=== PATIENT | female | born 1965 | race Caucasian/White ===

== ENCOUNTER 2016-07-05 12:36 | Inpatient (IN) ==
[2016-07-05] MEDS ORDERED: traZODone 50 MG TABLET PO PRN (18:10)
[2016-07-05] MEDS ORDERED: hydrOXYzine pamoate 25 MG CAPSULE PO PRN (18:10)
[2016-07-05] MEDS ORDERED: Haloperidol Lactate 5 MG/ML VIAL IM PRN (18:10)
[2016-07-05] MEDS ORDERED: MOM Conc 10 ML UD.LIQ PO PRN (18:10)
[2016-07-05] MEDS ORDERED: Mag Hydrox/Al Hydrox/Simeth 30 ML UDC PO PRN (18:10)
[2016-07-05 19:09] LABS: BUN/Creatinine Ratio 8 (6-26); Blood Urea Nitrogen 9 mg/dL (7-20); Calcium 9.8 mg/dL (8.6-10.8); Carbon Dioxide 33 mEq/L (19-29); Chloride 100 mEq/L (98-109); Glucose 160 mg/dL (70-99); Osmolality,Calculated 292 (280-300); Potassium 3.6 mEq/L (3.5-4.5); Sodium 140 mEq/L (136-145); eGFR For African Americans > 60 (> 60); eGFR For Non-African Americans 55 (> 60)
[2016-07-05] MEDS: traZODone 50 MG TABLET PO SCH (21:36)
[2016-07-05] MEDS: Ibuprofen 800 MG TABLET PO SCH (21:36)
[2016-07-05] MEDS: lamoTRIgine 25 MG TABLET PO SCH (21:36)
[2016-07-05] MEDS: Gabapentin 400 MG CAPSULE PO SCH (21:37)
[2016-07-05] MEDS: hydrOXYzine pamoate 25 MG CAPSULE PO SCH (21:37)
[2016-07-05] MEDS: Furosemide 40 MG TABLET PO SCH (21:40)
[2016-07-05] MEDS: *HR* Metformin 500 MG TABLET PO SCH (21:41)
[2016-07-05 21:51] LABS: Amphetamine Screen,Urine Negative ng/mL (Cutoff=1000); Barbiturate Screen,Urine Negative ng/mL (Cutoff=200); Benzodiazepines Screen,Urine Negative ng/mL (Cutoff=200); Cannabinoid Screen,Urine Negative ng/mL (Cutoff = 50); Cocaine Screen,Urine Negative ng/mL (Cutoff= 300); Opiate Screen,Urine Positive ng/mL (Cutoff=300); Phencyclidine Screen,Urine Negative ng/mL (Cutoff=25)
[2016-07-06] MEDS: *HR* OxyCODONE/APAP 7.5/325 TABLET PO PRN ×3 (05:24→22:32)
[2016-07-06] MEDS: Gabapentin 400 MG CAPSULE PO SCH ×3 (08:24→21:27)
[2016-07-06] MEDS: Furosemide 40 MG TABLET PO SCH ×2 (08:25→14:15)
[2016-07-06] MEDS: Ibuprofen 800 MG TABLET PO SCH ×3 (08:26→21:26)
[2016-07-06] MEDS: ARIPiprazole 5 MG TABLET PO SCH (08:27)
[2016-07-06] MEDS: Loratadine 10 MG TABLET PO SCH (08:28)
[2016-07-06] MEDS: *HR* Metformin 500 MG TABLET PO SCH ×2 (08:28→16:45)
[2016-07-06] MEDS: *HR* Glimepiride 4 MG TABLET PO SCH (08:29)
[2016-07-06] MEDS: *HR* Digoxin 0.25 MG TABLET PO SCH (08:30)
[2016-07-06] MEDS: (Linaclotide [Linzess] 290 MCG) PO SCH (09:55)
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
[2016-07-06] MEDS: lamoTRIgine 25 MG TABLET PO SCH (21:26)
[2016-07-06] MEDS: hydrOXYzine pamoate 25 MG CAPSULE PO SCH (21:26)
[2016-07-06] MEDS: traZODone 50 MG TABLET PO SCH (21:27)
[2016-07-06] MEDS: Mirtazapine 15 MG TABLET PO SCH (22:10)
[2016-07-07] MEDS: *HR* OxyCODONE/APAP 7.5/325 TABLET PO PRN ×2 (07:50→20:15)
[2016-07-07] MEDS: *HR* Metformin 500 MG TABLET PO SCH ×2 (07:50→16:43)
[2016-07-07] MEDS: Gabapentin 400 MG CAPSULE PO SCH ×3 (09:25→21:04)
[2016-07-07] MEDS: ARIPiprazole 5 MG TABLET PO SCH (09:26)
[2016-07-07] MEDS: Loratadine 10 MG TABLET PO SCH (09:27)
[2016-07-07] MEDS: Furosemide 40 MG TABLET PO SCH (09:27)
[2016-07-07] MEDS: Ibuprofen 800 MG TABLET PO SCH ×3 (09:27→21:05)
[2016-07-07] MEDS: *HR* Glimepiride 4 MG TABLET PO SCH (09:28)
[2016-07-07] MEDS: *HR* Digoxin 0.25 MG TABLET PO SCH (09:28)
[2016-07-07] MEDS: (Linaclotide [Linzess] 290 MCG) PO SCH ×2 (10:03→10:06)
--- NOTE | 2016-07-07 14:28 | Psychiatry Progress Note ---
Date of Encounter: 07/07/16 Time of Encounter: 14:25 Subjective Interval history: Pt reports taht she is feeling better and would like to go home today. She is quite concerned that she hads 3 medical appointments next week that she needs to keep inorder to contain her chroic pain. She denies feeling suicidal or feeling hopeless. No s/e Lamictal. Review of Systems Psychiatric: Reports: depression, anxiety, abnormal sleep pattern, hopelessness , irritability Objective: Exam Level of alertness: Alert Patient appearance: Well Groomed, Obese Behavior: calm, cooperative Psychomotor activity: Normal Eye contact: Maintains Eye Contact Mood description: Depressed Affect description: congruent with mood Speech pattern: Normal rate, Normal rhythm, Normal tone Speech volume: Normal Thought process: Intact, Logical, Linear Thought content: Yes Intact Perceptual disturbances: No Auditory hallucinations, No Visual hallucinations Judgment: Good Results - Vital Signs Vital Signs: Temp Pulse Resp BP 97.7 F 70 16 122/77 07/07/16 07:58 07/07/16 07:58 07/07/16 07:58 07/07/16 07:58 - Labs Labs: Laboratory Results - last 24 hr 07/06/16 07/07/16 16:21 06:44 POC Glucose 94 H 163 H Assessment and Plan (1) MDD (major depressive disorder), recurrent, severe, with psychosis Current visit: No Status: Acute Risks, benefits, side effects, alternatives discussed w/pt: Yes (Lamictal initiated.) Patient agreeable to treatment: Yes Consult Discharge Plan - Plan Referrals: [facility] [Outside] - 08/23/16 11:40 am (The above appointment is with Dr. Serrano.) Ceasar Rojo, PhD [Outside] - 07/09/16 4:00 pm (The above appointment is with Ceasar Rojo, PhD, at his office located at [address] [place] [address] in [place] [address].)
[2016-07-07] MEDS ORDERED: Mirtazapine 15 MG TABLET PO SCH (21:00)
[2016-07-07] MEDS: traZODone 50 MG TABLET PO SCH (21:03)
[2016-07-07] MEDS: Mirtazapine 15 MG TABLET PO SCH (21:03)
[2016-07-07] MEDS: lamoTRIgine 25 MG TABLET PO SCH (21:03)
[2016-07-07] MEDS: hydrOXYzine pamoate 25 MG CAPSULE PO SCH (21:04)
[2016-07-08] MEDS: *HR* OxyCODONE/APAP 7.5/325 TABLET PO PRN (03:10)
[2016-07-08] MEDS: ARIPiprazole 5 MG TABLET PO SCH (08:33)
[2016-07-08] MEDS: Gabapentin 400 MG CAPSULE PO SCH ×2 (08:34→14:37)
[2016-07-08] MEDS: Loratadine 10 MG TABLET PO SCH (08:34)
[2016-07-08] MEDS: Furosemide 40 MG TABLET PO SCH (08:34)
[2016-07-08] MEDS: *HR* Digoxin 0.25 MG TABLET PO SCH (08:34)
[2016-07-08] MEDS: Ibuprofen 800 MG TABLET PO SCH ×2 (08:35→14:37)
[2016-07-08] MEDS: *HR* Metformin 500 MG TABLET PO SCH (08:36)
[2016-07-08] MEDS: *HR* Glimepiride 4 MG TABLET PO SCH (08:37)
[2016-07-08] MEDS: (Linaclotide [Linzess] 290 MCG) PO SCH (08:37)
[2016-07-08 08:45] VITALS: BP 139/73
--- NOTE | 2016-07-08 08:59 | Electrocardiograph Report ---
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
--- NOTE | 2016-07-08 13:42 | Discharge Summary ---
Date of Encounter: 07/08/16 Time of Encounter: 13:42 Diagnosis - Discharge Diagnosis (1) MDD (major depressive disorder), recurrent, severe, with psychosis Status: Acute Medications - Discharge Medications Prescriptions: Lamotrigine [Lamictal] 25 mg PO HS #30 tablet Mirtazapine [Remeron] 15 mg PO HS #30 tablet Duloxetine HCl [Cymbalta] 60 mg PO BID 07/17/15 [History] HydrOXYzine Pamoate 25 mg PO HS 07/17/15 [History] Ibuprofen [Motrin] 800 mg PO TID 07/17/15 [History] Linaclotide [Linzess] 290 mcg PO DAILY 07/17/15 [History] Loratadine [Claritin] 10 mg PO DAILY 07/17/15 [History] Oxycodone HCl/Acetaminophen [Percocet 7.5-325 mg Tablet] 1 - 2 tab PO TID PRN [History] TraZODone 150 - 300 mg PO HS 07/17/15 [History] Aripiprazole [Abilify] 5 mg PO DAILY #30 tablet 07/19/15 [Rx] Digoxin [Lanoxin] 0.25 mg PO DAILY 07/05/16 [History] Esomeprazole Magnesium [Nexium] 40 mg PO DAILY 07/05/16 [History] Furosemide [Lasix] 120 mg PO TID 07/05/16 [History] Gabapentin [Neurontin] 800 mg PO TID 07/05/16 [History] Glimepiride [Amaryl] 4 mg PO DAILY 07/05/16 [History] Lisinopril [Zestril] 5 mg PO DAILY 07/05/16 [History] Metformin [Glucophage] 1,000 mg PO BID 07/05/16 [History] Potassium Chloride [K-Tab ER] 40 meq PO BID 07/05/16 [History] Rosuvastatin [Crestor] 20 mg PO HS 07/05/16 [History] Lamotrigine [Lamictal] 25 mg PO HS #30 tablet 07/08/16 [Rx] Mirtazapine [Remeron] 15 mg PO HS #30 tablet 07/08/16 [Rx] Allergies lorazepam [From Ativan] Allergy (Verified 07/17/15 22:35) Palpitations ropinirole [From Requip] Allergy (Verified 07/17/15 22:35) Palpitations Results Procedures and tests throughout hospitalization: Completed Lab Orders Category Date Time Status Chem 7 [Basic Metabolic Panel] Routine Lab 07/05/16 18:50 Completed Drug Screen, Urine [UCHEM] Routine Lab 07/05/16 21:30 Completed Provider Date of admission: 07/05/16 12:36 Primary care physician: PCP NO Discharging clinician: Keyshawn Garcia Assessment and Plan - Patient/Caregiver Discharge Instructions Activity: resume usual activities as tolerated Diet: regular diet - Follow up Plan Follow up with: [facility] [Outside] - 08/23/16 11:40 am (The above appointment is with Dr. Serrano.) Ceasar Rojo, PhD [Outside] - 07/09/16 4:00 pm (The above appointment is with Ceasar Rojo, PhD, at his office located at [address] [place] [address] in [place] [address].) Functional capacity at discharge: independent ambulation Overall status at discharge: Stable Disposition: Home, Self-Care Hospital Course Hospital course: Ms. Gordon is a 50 year old female admitted for evaluation and treatment of panic attacks and suicidal ideation. For details of the admission please see H& P On the units patient medication were reviewed and Lamictal and mirtazapine were added, patient responded well to medication changes reported improved sleep and less anxiety. Patient was compliant with medication and participated in activities. Prior to discharge patient was medically stable, denies suicidal ideation, tolerating medication. Her discharge plans were completed by social group worker. - Time Spent with Patient Total time spent providing and/or coordinating discharge services: Less than 30 minutes Quality - Multiple Antipsychotics Patient discharged on 2 or more antipsychotic medications: No Procedures - Procedures Procedures: Medication Management, Crisis Stabilization, Supportive Therapy, Group Therapy, Psychoeducational Therapy Mental Status Exam - Mental Status Exam Patient orientation: Yes Person, Yes Time, Yes Place Level of alertness: Alert Patient appearance: Well Groomed, Obese Behavior: calm, cooperative Psychomotor activity: Normal Eye contact: Maintains Eye Contact Mood description: Depressed Affect description: congruent with mood Speech pattern: Normal rate, Normal rhythm, Normal tone Speech Volume: Normal Thought process: Intact, Logical, Linear Thought Content: Yes Intact Perceptual Disturbances: No Auditory hallucinations, No Visual hallucinations Judgment: Good Insight: Partial
== END 2016-07-08 15:10 | disposition home or self-care (01) | DRG 885 ==
LOC: 1ANU 12:36 → SUATTDRO 12:36
PROVIDERS: ADMIT Psychiatry & Neurology Psychiatry; ATTEND Psychiatry & Neurology Psychiatry

== ENCOUNTER 2021-09-07 11:53 | Inpatient (IN) ==
[2021-09-07] MEDS ORDERED: Iopamidol - 370 500 ML MLS IVP ONE (12:25)
[2021-09-07] MEDS ORDERED: Morphine Sulfate 2 MG/ML SYRINGE IVP ONE (12:28)
[2021-09-07] MEDS ORDERED: Ondansetron 4 MG/2 ML VIAL IVP PRN ×3 (12:28→17:59)
[2021-09-07 13:01] LABS: White Blood Count 6.1 K/mcL (4.3-11.1)
[2021-09-07 13:02] LABS: Basophils % 0.5 %; Eosinophils # 0.3 K/mcL (0.0-0.6); Eosinophils % 4.1 %; Hematocrit 38.8 % (35.3-44.9); Hemoglobin 13.5 g/dL (11.5-15.4); Immature Granulocytes % 0.5 % (0-4); Lymphocytes # 1.5 K/mcL (0.6-4.6); Lymphocytes % 25.5 %; Mean Corpuscular HGB Conc 34.8 g/dL (31.6-35.5); Mean Corpuscular Hemoglobin 32.4 pg (28.0-33.3); Mean Platelet Volume 9.9 fL (9.4-12.4); Monocytes # 0.3 K/mcL (0.0-1.3); Monocytes % 5.6 %; Neutrophils # 3.9 K/mcL (1.6-8.9); Platelet Count 242 K/mcL (140-400); Red Blood Count 4.17 M/mcL (3.82-4.97); Red Cell Distribution Width 13.5 % (11.5-14.5); Segmented Neutrophils % 63.8 %
[2021-09-07 13:07] LABS: INR 0.9; Prothrombin Time 10.5 Seconds (9.4-12.1)
[2021-09-07 13:10] LABS: Activated Partial Thrombo Time 33.9 Seconds (26.0-36.0)
[2021-09-07 14:10] LABS: Alanine Aminotransferase > 5000 Units/L (7-52); Albumin/Globulin Ratio 1.2 (1.1-2.2); Alkaline Phosphatase 97 Units/L (34-104); Aspartate Amino Transferase > 3000 Units/L (13-39); BUN/Creatinine Ratio 17 (6-26); Bilirubin,Direct 0.2 mg/dL (0.0-0.2); Bilirubin,Total 0.2 mg/dL (0.3-1.0); Blood Urea Nitrogen 11 mg/dL (6-20); Calcium 9.7 mg/dL (8.6-10.3); Carbon Dioxide 22 mEq/L (23-29); Chloride 99 mEq/L (98-107); Globulin 3.3 g/dL (2.4-3.5); Glucose 158 mg/dL (70-105); Lipase 72 Units/L (11-82); Osmolality,Calculated 279 (280-300); Potassium 4.8 mEq/L (3.5-5.1); Sodium 133 mEq/L (136-145); Total Protein 7.3 g/dL (6.4-8.9); eGFR For African Americans > 60 (> 60); eGFR For Non-African Americans > 60 (> 60)
[2021-09-07 14:59] LABS: Bacteria,Urine Few per hpf (None-Few); Bilirubin,Urine Negative (Negative); Blood,Urine Negative (Negative); Clarity,Urine Clear (Clear); Color,Urine Light-Yellow (Yellow); Glucose,Urine (UA) Normal (Normal); Ketones,Urine Negative (Negative); Leukocyte Esterase,Urine Negative (Negative); Nitrite,Urine Negative (Negative); Protein,Urine 50 mg/dL (Neg-Trace); RBC,Urine 0-3 per hpf (0-3); Specific Gravity,Urine 1.014 (1.010-1.025); Squamous Epithelial Cell,Urine Few per hpf (None-Few); Urobilinogen,Urine Normal (Normal); WBC,Urine 0-3 per hpf (0-3)
[2021-09-07] MEDS ORDERED: *HR* FentaNYL (PF) 100 MCG/2 ML VIAL IVP ONE (15:21)
[2021-09-07 16:02] LABS: Acetaminophen < 10 mcg/mL (10-20)
[2021-09-07 16:04] LABS: Hepatitis B Surface Antigen Nonreactive (Nonreactive)
[2021-09-07 16:35] LABS: Hepatitis A Antibody IgM Nonreactive (Nonreactive); Hepatitis B Core IgM Nonreactive (Nonreactive)
[2021-09-07 16:36] LABS: Hepatitis C Virus Antibody Nonreactive (Nonreactive)
[2021-09-07] MEDS ORDERED: Naloxone 0.4 MG/ML INJ IVP PRN (17:59)
[2021-09-07] MEDS ORDERED: D5% in Water 1,000 ML IVC PRN (18:33)
[2021-09-07] MEDS ORDERED: *HR* Dextrose 50 % in Water (Syg) 50 ML SYRINGE IVP PRN (18:33)
[2021-09-07] MEDS ORDERED: Dextrose Gel 15 GM/37.5 ML TUBE PO PRN ×2 (18:33)
[2021-09-07] MEDS: carBAMazepine 200 MG TABLET PO SCH (20:32)
[2021-09-07] MEDS: Bumetanide 1 MG TABLET PO SCH (20:33)
[2021-09-07] MEDS: methocarbamoL 750 MG TABLET PO SCH (20:33)
[2021-09-07] MEDS: Pregabalin 75 MG CAPSULE PO SCH (20:33)
[2021-09-07] MEDS: Celecoxib 200 MG CAPSULE PO SCH (20:33)
[2021-09-07] MEDS: rOPINIRole 3 MG, rOPINIRole 2 MG PO SCH (20:43)
[2021-09-07] MEDS ORDERED: *HR* Insulin Regular U-500 500 UNIT/ML SUBQ SCH (21:00)
[2021-09-07] MEDS ORDERED: diazePAM 10 MG TABLET PO SCH (21:00)
[2021-09-07] MEDS ORDERED: NON-FORMULARY MEDICATION 1 EACH EACH (Ropinirole Hcl 5 MG Tablet) PO SCH (21:00)
[2021-09-07 21:14] LABS: Magnesium 1.7 mg/dL (1.6-2.6); Troponin I < 0.03 ng/mL (< 0.04)
[2021-09-07 22:18] LABS: Estimated Average Glucose 246 mg/dl; Hemoglobin A1C 10.2 %
[2021-09-07 23:33] LABS: Amphetamine Screen,Urine Negative ng/mL (Cutoff=1000); Barbiturate Screen,Urine Negative ng/mL (Cutoff=200); Benzodiazepines Screen,Urine Positive ng/mL (Cutoff=200); Cannabinoid Screen,Urine Negative ng/mL (Cutoff = 50); Cocaine Screen,Urine Negative ng/mL (Cutoff= 300); Opiate Screen,Urine Negative ng/mL (Cutoff=300); Phencyclidine Screen,Urine Negative ng/mL (Cutoff=25)
[2021-09-08] MEDS: Insulin LISPRO 300 UNITS/3 ML VIAL SUBQ SCH ×4 (00:09→17:00)
[2021-09-08] MEDS ORDERED: Insulin DETEMIR 100 UNIT/ML X5UNITS SUBQ ONE (01:45)
[2021-09-08 06:20] LABS: Basophils % 0.6 %; Eosinophils # 0.2 K/mcL (0.0-0.6); Eosinophils % 3.7 %; Hemoglobin 13.1 g/dL (11.5-15.4); Immature Granulocytes % 0.6 % (0-4); Lymphocytes # 1.9 K/mcL (0.6-4.6); Mean Corpuscular HGB Conc 33.6 g/dL (31.6-35.5); Mean Corpuscular Hemoglobin 31.4 pg (28.0-33.3); Mean Corpuscular Volume 93.5 fL (83.0-100.0); Mean Platelet Volume 10.1 fL (9.4-12.4); Monocytes # 0.3 K/mcL (0.0-1.3); Monocytes % 7.1 %; Neutrophils # 2.2 K/mcL (1.6-8.9); Platelet Count 209 K/mcL (140-400); Red Blood Count 4.17 M/mcL (3.82-4.97); Red Cell Distribution Width 13.4 % (11.5-14.5); White Blood Count 4.6 K/mcL (4.3-11.1)
[2021-09-08 06:26] LABS: INR 1.1
[2021-09-08 06:54] LABS: Alanine Aminotransferase 27 Units/L (7-52); Albumin 3.9 g/dL (3.5-5.7); Albumin/Globulin Ratio 1.3 (1.1-2.2); Alkaline Phosphatase 91 Units/L (34-104); Aspartate Amino Transferase 29 Units/L (13-39); BUN/Creatinine Ratio 18 (6-26); Bilirubin,Total 0.3 mg/dL (0.3-1.0); Blood Urea Nitrogen 12 mg/dL (6-20); Calcium 9.4 mg/dL (8.6-10.3); Carbon Dioxide 27 mEq/L (23-29); Chloride 96 mEq/L (98-107); Chol/HDL Ratio 15.1 (0-4.9); Cholesterol 559 mg/dL (< 200); Glucose 218 mg/dL (70-105); HDL Cholesterol 37 mg/dL (40-59); Osmolality,Calculated 282 (280-300); Potassium 3.7 mEq/L (3.5-5.1); Sodium 133 mEq/L (136-145); Total Protein 6.9 g/dL (6.4-8.9); Triglycerides 2670 mg/dL (< 150); eGFR For African Americans > 60 (> 60); eGFR For Non-African Americans > 60 (> 60)
[2021-09-08] MEDS: lisinopriL 5 MG TABLET PO SCH (08:26)
[2021-09-08] MEDS: Pantoprazole 40 MG VIAL IVP SCH (08:26)
[2021-09-08] MEDS: *HR* Digoxin 0.125 MG TABLET PO SCH (08:26)
[2021-09-08] MEDS: methocarbamoL 750 MG TABLET PO SCH ×3 (08:26→22:14)
[2021-09-08] MEDS: carBAMazepine 200 MG TABLET PO SCH ×3 (08:26→22:11)
[2021-09-08] MEDS: Pregabalin 75 MG CAPSULE PO SCH ×3 (08:26→22:11)
[2021-09-08] MEDS: Bumetanide 1 MG TABLET PO SCH ×2 (08:26→16:58)
[2021-09-08] MEDS: diazePAM 5 MG TABLET PO SCH ×2 (08:26→22:12)
[2021-09-08] MEDS: Celecoxib 200 MG CAPSULE PO SCH ×2 (08:26→22:12)
[2021-09-08] MEDS: Aspirin Enteric Coated 81 MG Tablet PO SCH (08:26)
[2021-09-08] MEDS: Fenofibrate 54 MG TABLET PO SCH (10:22)
[2021-09-08] MEDS: *HR* Insulin Regular U-500 500 UNIT/ML SUBQ SCH (10:22)
[2021-09-08] MEDS: rOPINIRole 3 MG, rOPINIRole 2 MG PO SCH ×2 (10:22→23:14)
[2021-09-08 10:29] LABS: Albumin 3.9 g/dL (3.5-5.7); Albumin/Globulin Ratio 1.3 (1.1-2.2); Bilirubin,Indirect 0.4 mg/dL (0.0-1.0); Bilirubin,Total 0.4 mg/dL (0.3-1.0); Total Protein 6.9 g/dL (6.4-8.9)
[2021-09-08] MEDS ORDERED: *HR* FentaNYL (PF) 100 MCG/2 ML VIAL IVP ONE (12:03)
[2021-09-08] MEDS ORDERED: Morphine Sulfate 2 MG/ML SYRINGE IVP ONE (15:25)
[2021-09-08] MEDS ORDERED: MENTHOL TP PRN (15:29)
[2021-09-08] MEDS ORDERED: METHYL SALICYLATE TP PRN (15:29)
[2021-09-08] MEDS ORDERED: *HR* Insulin Regular U-500 500 UNIT/ML SUBQ SCH (21:00)
[2021-09-09 01:57] LABS: Alanine Aminotransferase 52 Units/L (7-52); Albumin 3.8 g/dL (3.5-5.7); Albumin/Globulin Ratio 1.2 (1.1-2.2); Alkaline Phosphatase 103 Units/L (34-104); Aspartate Amino Transferase 79 Units/L (13-39); BUN/Creatinine Ratio 19 (6-26); Bilirubin,Total 0.4 mg/dL (0.3-1.0); Blood Urea Nitrogen 18 mg/dL (6-20); Calcium 8.7 mg/dL (8.6-10.3); Carbon Dioxide 28 mEq/L (23-29); Chloride 96 mEq/L (98-107); Globulin 3.2 g/dL (2.4-3.5); Glucose 223 mg/dL (70-105); Osmolality,Calculated 287 (280-300); Potassium 3.7 mEq/L (3.5-5.1); Sodium 134 mEq/L (136-145); eGFR For African Americans > 60 (> 60); eGFR For Non-African Americans > 60 (> 60)
[2021-09-09] MEDS: Insulin LISPRO 300 UNITS/3 ML VIAL SUBQ SCH ×4 (06:26→12:47)
[2021-09-09] MEDS: carBAMazepine 200 MG TABLET PO SCH (07:51)
[2021-09-09] MEDS: Pantoprazole 40 MG VIAL IVP SCH (07:51)
[2021-09-09] MEDS: Fenofibrate 54 MG TABLET PO SCH (07:51)
[2021-09-09] MEDS: Pregabalin 75 MG CAPSULE PO SCH (07:52)
[2021-09-09] MEDS: diazePAM 5 MG TABLET PO SCH (07:52)
[2021-09-09] MEDS: Bumetanide 1 MG TABLET PO SCH (07:52)
[2021-09-09] MEDS: rOPINIRole 3 MG, rOPINIRole 2 MG PO SCH (07:52)
[2021-09-09] MEDS: Celecoxib 200 MG CAPSULE PO SCH (07:52)
[2021-09-09] MEDS: lisinopriL 5 MG TABLET PO SCH (07:52)
[2021-09-09] MEDS: Aspirin Enteric Coated 81 MG Tablet PO SCH (07:52)
[2021-09-09] MEDS: *HR* Digoxin 0.125 MG TABLET PO SCH (07:52)
[2021-09-09] MEDS: methocarbamoL 750 MG TABLET PO SCH (07:52)
[2021-09-09] MEDS: *HR* Insulin Regular U-500 500 UNIT/ML SUBQ SCH (08:00)
[2021-09-09 10:13] LABS: ABG Base Excess 1 mEq/L (-2 to 3); ABG HCO3 26 mEq/L (21-27); ABG Oxygen Saturation 97 % (95-98); ABG PCO2 46 mmHg (35-45); ABG PH 7.37 pH Units (7.32-7.45); ABG PO2 89 mmHg (85-104); ABG TCO2 28 mEq/L (20-26)
[2021-09-09 13:09] VITALS: BP 97/60; PULSE 71; TEMP 97.8; O2SAT 91
[2021-09-10 08:58] LABS: Lipase 53 Units/L (11-82)
== END 2021-09-09 14:05 | disposition home health service (06) | DRG 948 ==
LOC: 3ANU 11:53 → EMEROOARM 11:53 → 3ANU 19:37
PROVIDERS: ADMIT Internal Medicine; ATTEND Internal Medicine